=== PATIENT | female | born 1960 | race African-American/Black ===

== ENCOUNTER 2017-12-06 15:04 | Emergency (ER) | payer OTHER ==
[2017-12-06] MEDS: KETOROLAC 60 MG INJ IM (16:36)
[2017-12-06] MEDS: HYDROmorphONE 1 MG/ML SYG IM (16:36)
[2017-12-06] MEDS: METHOCARBAMOL 750 MG TAB PO (16:57)
== END 2017-12-06 18:10 | disposition home or self-care (01) ==
LOC: FTE 15:04
DX: S46.911A Strain of unspecified muscle, fascia and tendon at shoulder and upper arm level, right arm, initial encounter (principal); J44.9 Chronic obstructive pulmonary disease, unspecified; J45.909 Unspecified asthma, uncomplicated; F17.210 Nicotine dependence, cigarettes, uncomplicated; X58.XXXA Exposure to other specified factors, initial encounter; Y92.9 Unspecified place or not applicable
CPT/HCPCS: 73030; 73030-RT; 96372; 99284-25

== ENCOUNTER 2017-12-15 16:04 | Emergency (ER) | payer OTHER ==
[2017-12-15] MEDS: KETOROLAC 30 MG INJ IM (18:48)
== END 2017-12-15 19:08 | disposition home or self-care (01) ==
LOC: FTE 16:04
DX: M25.511 Pain in right shoulder (principal); E11.9 Type 2 diabetes mellitus without complications; J45.909 Unspecified asthma, uncomplicated; J44.9 Chronic obstructive pulmonary disease, unspecified; F17.210 Nicotine dependence, cigarettes, uncomplicated
CPT/HCPCS: 96372; 99284-25

== ENCOUNTER 2017-12-25 18:41 | Emergency (ER) | payer SELFPAY, OTHER | END 2017-12-25 20:12 | disposition left against medical advice (07) | LOC: FTE 18:41 | DX: Z53.21 Procedure and treatment not carried out due to patient leaving prior to being seen by health care provider (principal) ==

== ENCOUNTER 2017-12-26 17:09 | Emergency (ER) | payer OTHER ==
[2017-12-26] MEDS: KETOROLAC 60 MG INJ IM (20:49)
== END 2017-12-26 21:39 | disposition home or self-care (01) ==
LOC: FTE 17:09
DX: M19.011 Primary osteoarthritis, right shoulder (principal); J44.9 Chronic obstructive pulmonary disease, unspecified; I10 Essential (primary) hypertension; Z96.649 Presence of unspecified artificial hip joint
CPT/HCPCS: 96372; 99284-25

== ENCOUNTER 2018-01-31 15:24 | Emergency (ER) | payer OTHER ==
[2018-01-31] MEDS: ONDANSETRON (ODT) 4 MG TAB ODT (17:41)
[2018-01-31] MEDS: morphine 10 MG INJ IM (17:42)
[2018-01-31 17:48] LABS: ADD MAN DIFF? NO
[2018-01-31 17:51] LABS: WHITE BLOOD COUNT 9.8 10^3/ul (4.8-10.8)
[2018-01-31 17:51] LABS: BASOPHIL # 0.1 10^3/ul (0.0-0.1); BASOPHILS % 0.7 % (0.0-2.0); EOSINOPHILS # 0.2 10^3/ul (0.0-0.5); HEMATOCRIT 39.4 % (37.0-47.0); HEMOGLOBIN 13.3 g/dl (12.0-16.0); LYMPHOCYTES # 3.2 10^3/ul (0.8-2.9); LYMPHOCYTES % 32.5 % (15.0-51.0); MEAN CORPUSCULAR HEMOGLOBIN 30.7 pg (29.0-33.0); MEAN CORPUSCULAR HGB CONC 33.8 g/dl (32.0-37.0); MEAN PLATELET VOLUME 10.4 fl (7.4-10.4); MONOCYTE # 0.8 10^3/ul (0.3-0.9); NEUTROPHIL # 5.5 10^3/ul (1.6-7.5); NEUTROPHILS % 56.4 % (39.0-77.0); PLATELET COUNT 259 10^3/UL (140-415); RED BLOOD COUNT 4.33 10^6/ul (4.20-5.40); RED CELL DISTRIBUTION WIDTH 13.7 % (11.5-14.5)
[2018-01-31 18:10] LABS: INR 0.93; PARTIAL THROMBOPLASTIN TIME 25.7 Sec (25.0-35.0); PROTIME 12.5 Sec (11.9-14.9)
[2018-01-31 18:13] LABS: ALANINE AMINOTRANSFERASE 37 IU/L (13-69); ALBUMIN 4.3 g/dl (3.3-4.9); ALBUMIN/GLOBULIN RATIO 1.26; ALKALINE PHOSPHATASE 101 IU/L (42-121); ANION GAP 16 (8-16); ASPARTATE AMINO TRANSFERASE 24 IU/L (15-46); BILIRUBIN,INDIRECT 0.1 mg/dl (0-1.1); BILIRUBIN,TOTAL 0.1 mg/dl (0.2-1.3); BLOOD UREA NITROGEN 15 mg/dl (7-20); CALCIUM 9.4 mg/dl (8.4-10.2); CARBON DIOXIDE 28 mmol/L (21-31); CHLORIDE 104 mmol/L (97-110); CREATINE KINASE 168 IU/L (23-200); CREATININE 0.71 mg/dl (0.44-1.00); GLUCOSE 94 mg/dl (70-220); LIPASE 51 U/L (23-300); POTASSIUM 4.1 mmol/L (3.5-5.1); SODIUM 144 mmol/L (135-144); TOTAL PROTEIN 7.7 g/dl (6.1-8.1)
[2018-01-31 18:25] LABS: B-TYPE NATRIURETIC PEPTIDE 42 PG/ML (0-125); CK INDEX 2.2; CK-MB 3.77 ng/ml (0.0-2.4)
[2018-01-31 18:46] LABS: TROPONIN-I < 0.012 ng/ml (0.00-0.12)
[2018-01-31] MEDS: HYDROmorphONE 0.5 MG/0.5 ML SYG IM (19:34)
== END 2018-01-31 20:06 | disposition home or self-care (01) ==
LOC: E/R 15:24
DX: M25.511 Pain in right shoulder (principal); M54.12 Radiculopathy, cervical region; I10 Essential (primary) hypertension; J44.9 Chronic obstructive pulmonary disease, unspecified; R07.9 Chest pain, unspecified
CPT/HCPCS: 71045; 80053; 82550; 82553; 83690; 83880; 84484; 85025; 85610; 85730; 93005; 96372; 99285-25

== ENCOUNTER 2018-02-10 14:02 | Emergency (ER) | payer OTHER ==
[2018-02-10 16:21] LABS: ADD MAN DIFF? NO
[2018-02-10 16:24] LABS: WHITE BLOOD COUNT 8.6 10^3/ul (4.8-10.8)
[2018-02-10 16:24] LABS: BASOPHIL # 0.1 10^3/ul (0.0-0.1); BASOPHILS % 0.7 % (0.0-2.0); EOSINOPHILS # 0.1 10^3/ul (0.0-0.5); EOSINOPHILS % 0.8 % (0.0-7.0); HEMATOCRIT 39.8 % (37.0-47.0); HEMOGLOBIN 13.2 g/dl (12.0-16.0); LYMPHOCYTES # 1.6 10^3/ul (0.8-2.9); LYMPHOCYTES % 18.6 % (15.0-51.0); MEAN CORPUSCULAR HEMOGLOBIN 30.8 pg (29.0-33.0); MEAN CORPUSCULAR HGB CONC 33.2 g/dl (32.0-37.0); MEAN PLATELET VOLUME 10.5 fl (7.4-10.4); MONOCYTE # 0.2 10^3/ul (0.3-0.9); NEUTROPHIL # 6.6 10^3/ul (1.6-7.5); NEUTROPHILS % 77.4 % (39.0-77.0); PLATELET COUNT 231 10^3/UL (140-415); RED BLOOD COUNT 4.28 10^6/ul (4.20-5.40); RED CELL DISTRIBUTION WIDTH 14.2 % (11.5-14.5)
[2018-02-10 16:42] LABS: ALANINE AMINOTRANSFERASE 48 IU/L (13-69); ALBUMIN 4.4 g/dl (3.3-4.9); ALBUMIN/GLOBULIN RATIO 1.25; ALKALINE PHOSPHATASE 103 IU/L (42-121); ANION GAP 20 (8-16); ASPARTATE AMINO TRANSFERASE 38 IU/L (15-46); BILIRUBIN,INDIRECT 0.2 mg/dl (0-1.1); BILIRUBIN,TOTAL 0.2 mg/dl (0.2-1.3); BLOOD UREA NITROGEN 15 mg/dl (7-20); CALCIUM 9.8 mg/dl (8.4-10.2); CARBON DIOXIDE 25 mmol/L (21-31); CHLORIDE 103 mmol/L (97-110); GLUCOSE 210 mg/dl (70-220); POTASSIUM 4.4 mmol/L (3.5-5.1); SODIUM 144 mmol/L (135-144); TOTAL PROTEIN 7.9 g/dl (6.1-8.1)
== END 2018-02-10 17:06 | disposition home or self-care (01) ==
LOC: FTE 14:02
DX: R45.82 Worries (principal); J44.9 Chronic obstructive pulmonary disease, unspecified; I10 Essential (primary) hypertension
CPT/HCPCS: 71045; 80053; 85025; 99284-25

== ENCOUNTER 2018-03-29 13:12 | Emergency (ER) | payer OTHER ==
[2018-03-29] MEDS: LIDOCAINE/MYLANTA 40 ML BTL PO (16:33)
[2018-03-29] MEDS: ONDANSETRON (ODT) 4 MG TAB ODT (16:33)
[2018-03-29 17:08] LABS: ADD MAN DIFF? NO
[2018-03-29 17:09] LABS: BASOPHILS % 0.2 % (0.0-2.0); EOSINOPHILS # 0.4 10^3/ul (0.0-0.5); EOSINOPHILS % 4.2 % (0.0-7.0); HEMATOCRIT 39.5 % (37.0-47.0); HEMOGLOBIN 12.9 g/dl (12.0-16.0); LYMPHOCYTES # 2.7 10^3/ul (0.8-2.9); LYMPHOCYTES % 29.8 % (15.0-51.0); MEAN CORPUSCULAR HEMOGLOBIN 30.4 pg (29.0-33.0); MEAN CORPUSCULAR HGB CONC 32.7 g/dl (32.0-37.0); MEAN CORPUSCULAR VOLUME 93.2 fl (82.0-101.0); MEAN PLATELET VOLUME 10.9 fl (7.4-10.4); MONOCYTE # 0.9 10^3/ul (0.3-0.9); MONOCYTES % 9.7 % (0.0-11.0); NEUTROPHIL # 5.1 10^3/ul (1.6-7.5); NEUTROPHILS % 55.7 % (39.0-77.0); PLATELET COUNT 237 10^3/UL (140-415); RED BLOOD COUNT 4.24 10^6/ul (4.20-5.40); RED CELL DISTRIBUTION WIDTH 12.9 % (11.5-14.5)
[2018-03-29 17:09] LABS: WHITE BLOOD COUNT 9.2 10^3/ul (4.8-10.8)
[2018-03-29 17:30] LABS: ALANINE AMINOTRANSFERASE 23 IU/L (13-69); ALBUMIN/GLOBULIN RATIO 1.21; ALKALINE PHOSPHATASE 99 IU/L (42-121); ANION GAP 14 (8-16); ASPARTATE AMINO TRANSFERASE 20 IU/L (15-46); BILIRUBIN,INDIRECT 0.2 mg/dl (0-1.1); BILIRUBIN,TOTAL 0.2 mg/dl (0.2-1.3); BLOOD UREA NITROGEN 13 mg/dl (7-20); CALCIUM 9.4 mg/dl (8.4-10.2); CARBON DIOXIDE 31 mmol/L (21-31); CHLORIDE 103 mmol/L (97-110); CREATININE 0.63 mg/dl (0.44-1.00); GLUCOSE 117 mg/dl (70-220); LIPASE 32 U/L (23-300); POTASSIUM 3.9 mmol/L (3.5-5.1); SODIUM 144 mmol/L (135-144); TOTAL PROTEIN 7.3 g/dl (6.1-8.1)
[2018-03-29 17:39] LABS: URINE BLOOD (Dip) POC Negative (NEGATIVE); URINE GLUCOSE (Dip) POC Negative (NEGATIVE); URINE KETONES (Dip) POC Negative (NEGATIVE); URINE LEUKOCYTE EST (Dip) POC Negative (NEGATIVE); URINE NITRITE (Dip) POC Negative (NEGATIVE); URINE TOTAL PROTEIN POC Negative (NEGATIVE)
== END 2018-03-29 18:30 | disposition home or self-care (01) ==
LOC: E/R 13:12
DX: R10.84 Generalized abdominal pain (principal); J45.909 Unspecified asthma, uncomplicated; I25.10 Atherosclerotic heart disease of native coronary artery without angina pectoris; I10 Essential (primary) hypertension; R11.10 Vomiting, unspecified; Z96.641 Presence of right artificial hip joint
CPT/HCPCS: 36415; 80053; 81003; 83690; 85025; 99283-25

== ENCOUNTER 2018-04-03 05:27 | Emergency (ER) | payer OTHER ==
[2018-04-03 08:21] LABS: ADD MAN DIFF? NO
[2018-04-03 08:30] LABS: WHITE BLOOD COUNT 11.9 10^3/ul (4.8-10.8)
[2018-04-03 08:30] LABS: BASOPHILS % 0.3 % (0.0-2.0); EOSINOPHILS # 0.4 10^3/ul (0.0-0.5); EOSINOPHILS % 3.7 % (0.0-7.0); HEMATOCRIT 42.4 % (37.0-47.0); LYMPHOCYTES # 2.8 10^3/ul (0.8-2.9); LYMPHOCYTES % 23.8 % (15.0-51.0); MEAN CORPUSCULAR HEMOGLOBIN 30.2 pg (29.0-33.0); MEAN CORPUSCULAR VOLUME 91.4 fl (82.0-101.0); MONOCYTE # 0.9 10^3/ul (0.3-0.9); MONOCYTES % 7.6 % (0.0-11.0); NEUTROPHIL # 7.6 10^3/ul (1.6-7.5); NEUTROPHILS % 64.1 % (39.0-77.0); PLATELET COUNT 259 10^3/UL (140-415); RED BLOOD COUNT 4.64 10^6/ul (4.20-5.40); RED CELL DISTRIBUTION WIDTH 12.8 % (11.5-14.5)
[2018-04-03 08:31] LABS: ADD UMIC NO; UR ASCORBIC ACID NEGATIVE (NEGATIVE); UR BILIRUBIN (Dip) NEGATIVE (NEGATIVE); UR BLOOD (Dip) NEGATIVE (NEGATIVE); UR CLARITY CLEAR (CLEAR); UR COLOR YELLOW (YELLOW); UR GLUCOSE (Dip) NEGATIVE (NEGATIVE); UR KETONES (Dip) NEGATIVE (NEGATIVE); UR LEUKOCYTE ESTERASE (Dip) NEGATIVE Leu/ul (NEGATIVE); UR NITRITE (Dip) NEGATIVE (NEGATIVE); UR SPECIFIC GRAVITY (Dip) 1.008 (1.003-1.030); UR TOTAL PROTEIN (Dip) NEGATIVE (NEGATIVE); UR UROBILINOGEN (Dip) NEGATIVE (NEGATIVE)
[2018-04-03 08:45] LABS: ALANINE AMINOTRANSFERASE 29 IU/L (13-69); ALBUMIN/GLOBULIN RATIO 1.25; ALKALINE PHOSPHATASE 112 IU/L (42-121); ANION GAP 15 (8-16); ASPARTATE AMINO TRANSFERASE 25 IU/L (15-46); BILIRUBIN,INDIRECT 0.3 mg/dl (0-1.1); BILIRUBIN,TOTAL 0.3 mg/dl (0.2-1.3); BLOOD UREA NITROGEN 10 mg/dl (7-20); CALCIUM 9.7 mg/dl (8.4-10.2); CARBON DIOXIDE 28 mmol/L (21-31); CHLORIDE 106 mmol/L (97-110); CREATININE 0.69 mg/dl (0.44-1.00); GLUCOSE 95 mg/dl (70-220); LIPASE 33 U/L (23-300); POTASSIUM 4.2 mmol/L (3.5-5.1); SODIUM 145 mmol/L (135-144); TOTAL PROTEIN 7.2 g/dl (6.1-8.1)
[2018-04-03] MEDS: ONDANSETRON 4 MG INJ IV (10:36)
[2018-04-03] MEDS: HYDROmorphONE 1 MG/5 ML IV SYRINGE IV (10:36)
[2018-04-03] MEDS: SOD CHLORIDE 0.9% 1,000 ML IV (10:37)
[2018-04-03] MEDS: IOHEXOL 300MG/ML 150 ML BTL (10:50)
[2018-04-03] MEDS: SOD CHLORIDE 0.9% 100 ML (10:50)
== END 2018-04-03 12:18 | disposition home or self-care (01) ==
LOC: E/R 05:27
DX: K59.00 Constipation, unspecified (principal); R40.2142 Coma scale, eyes open, spontaneous, at arrival to emergency department; R40.2222 Coma scale, best verbal response, incomprehensible words, at arrival to emergency department; R40.2362 Coma scale, best motor response, obeys commands, at arrival to emergency department; I10 Essential (primary) hypertension; J45.909 Unspecified asthma, uncomplicated; J44.9 Chronic obstructive pulmonary disease, unspecified; Z96.643 Presence of artificial hip joint, bilateral
CPT/HCPCS: 36415; 74177; 80053; 81003; 83690; 85025; 96374; 96375; 99285-25

== ENCOUNTER 2018-07-27 07:04 | Day surgery (SDC) | payer OTHER ==
[2018-07-27] MEDS ORDERED: PROPOFOL 60 ML (08:26)
[2018-07-27] MEDS ORDERED: LIDOCAINE 2% (SDV) 5 ML INJ (08:26)
== END 2018-07-27 11:44 | disposition home or self-care (01) ==
LOC: GIL 07:04
DX: Z12.11 Encounter for screening for malignant neoplasm of colon (principal); K29.50 Unspecified chronic gastritis without bleeding; K64.8 Other hemorrhoids
CPT/HCPCS: 43239; 88305; 88312